=== PATIENT | male | born 1970 | race Caucasian/White ===

== ENCOUNTER → 2018-03-08 08:03 | Outpatient (CLI) | payer OTHER, SELFPAY ==
[2018-03-08 09:01] LABS: Add Manual Diff / Slide Review NO; Basophils Percent Auto 0.4 % (0-2); Eosinophils Percent Auto 1.1 % (2-4); Hematocrit 44.9 % (41-53); Hemoglobin 15.7 g/dL (13.5-17.5); Lymphocytes Percent Auto 25.5 % (25-40); Mean Corpuscular HGB Conc 34.9 % (30-36); Mean Corpuscular Hemoglobin 30.3 PG (26-34); Mean Corpuscular Volume 86.7 fL (80-100); Monocytes Percent Auto 9.9 % (3-14); Neutrophils Absolute Auto 3300 /uL (3000-5900); Neutrophils Percent Auto 63.1 % (50-75); Platelet Count 276 X10^3/uL (150-400); Red Blood Cell Count 5.17 X10^6/uL (4.5-5.9); Red Cell Distribution Width 12.8 % (11.6-14.8); White Blood Cell Count 5.2 X10^3/uL (4.5-11.0)
[2018-03-08 09:06] LABS: Alanine Aminotransferase 31 IU/L (21-72); Albumin 4.3 g/dL (3.5-5.0); Albumin Globulin Ratio 1.4 (1.0-2.8); Alkaline Phosphatase 44 U/L (38-126); Aspartate Aminotransferase 29 IU/L (17-59); BUN Creatinine Ratio 25.6 (6-22); Bilirubin Total 1.1 mg/dL (0.2-1.3); Blood Urea Nitrogen 23 mg/dL (9-20); Calcium 9.2 mg/dL (8.4-10.2); Carbon Dioxide 30 mmol/L (22-32); Chloride 102 mmol/L (98-107); Cholesterol 217 mg/dL (140-199); Estimated Glomerular Filt Rate > 60.0 mL/min (>60); Globulin 3.1 g/dL (1.7-4.1); Glucose 92 mg/dL (70-100); HDL Cholesterol 51 mg/dL (40-60); HEMOLYSIS < 15 (0-50); LDL Cholesterol Calculated 149 mg/dL (<100); Potassium 4.5 mmol/L (3.4-5.1); Sodium 140 mmol/L (137-145); Total Protein 7.4 g/dL (6.3-8.2); Triglycerides 87 mg/dL (35-150)
[2018-03-08 09:17] LABS: LDL Cholesterol Direct 141 mg/dL (<100)
[2018-03-08 12:35] LABS: Thyroid Stimulating Hormone 2.05 uIU/mL (0.47-4.68)
== END ==
PROVIDERS: Visit Provider Family Medicine
DX: Z00.00 Encounter for general adult medical examination without abnormal findings (principal); E78.5 Hyperlipidemia, unspecified
CPT/HCPCS: 36415; 80053; 80061; 83721; 84443; 85025

== ENCOUNTER → 2019-04-25 08:57 | Outpatient (CLI) | payer OTHER, SELFPAY ==
[2019-04-25 09:43] LABS: Add Manual Diff / Slide Review NO; Basophils Absolute Auto 0 /uL (0-100); Basophils Percent Auto 0.7 % (0-2); Eosinophils Absolute Auto 0 /uL (0-450); Hematocrit 45.2 % (41-53); Hemoglobin 15.7 g/dL (13.5-17.5); Lymphocytes Absolute Auto 1200 /uL (1100-4500); Lymphocytes Percent Auto 24.1 % (25-40); Mean Corpuscular HGB Conc 34.8 % (30-36); Mean Corpuscular Volume 86.1 fL (80-100); Monocytes Absolute Auto 400 /uL (0-900); Monocytes Percent Auto 8.7 % (3-14); Neutrophils Absolute Auto 3200 /uL (1500-7000); Neutrophils Percent Auto 65.5 % (50-75); Platelet Count 267 X10^3/uL (150-400); Red Blood Cell Count 5.25 X10^6/uL (4.5-5.9); White Blood Cell Count 4.9 X10^3/uL (4.5-11.0)
[2019-04-25 09:47] LABS: Alanine Aminotransferase 26 IU/L (21-72); Albumin 4.4 g/dL (3.5-5.0); Albumin Globulin Ratio 1.4 (1.0-2.8); Alkaline Phosphatase 49 U/L (38-126); Aspartate Aminotransferase 28 IU/L (17-59); Blood Urea Nitrogen 24 mg/dL (9-20); Calcium 9.2 mg/dL (8.4-10.2); Carbon Dioxide 32 mmol/L (22-32); Chloride 100 mmol/L (98-107); Cholesterol 255 mg/dL (140-199); Estimated Glomerular Filt Rate > 60.0 mL/min (>60); Globulin 3.2 g/dL (1.7-4.1); Glucose 91 mg/dL (70-100); HDL Cholesterol 45 mg/dL (40-60); HEMOLYSIS < 15 (0-50); LDL Cholesterol Calculated 190 mg/dL (<100); Potassium 4.3 mmol/L (3.4-5.1); Sodium 138 mmol/L (137-145); Total Protein 7.6 g/dL (6.3-8.2); Triglycerides 102 mg/dL (35-150); VLDL Cholesterol Calculated 20 mg/dL (2-30)
[2019-04-25 10:30] LABS: Thyroid Stimulating Hormone 2.51 uIU/mL (0.47-4.68)
== END ==
PROVIDERS: Visit Provider Family Medicine
DX: E78.5 Hyperlipidemia, unspecified (principal); Z00.00 Encounter for general adult medical examination without abnormal findings
CPT/HCPCS: 36415; 80053; 80061; 84443; 85025

== ENCOUNTER → 2020-12-01 11:37 | Outpatient (CLI) | payer OTHER, SELFPAY ==
[2020-12-01 13:25] LABS: COVID19 -Nasal RAPID Negative (Negative)
== END ==
PROVIDERS: Visit Provider Physician Assistant
DX: Z20.822 Contact with and (suspected) exposure to COVID-19 (principal); Z01.812 Encounter for preprocedural laboratory examination
CPT/HCPCS: 87635

== ENCOUNTER 2020-12-03 06:29 | Day surgery (SDC) | payer OTHER, SELFPAY ==
[2020-12-03] VITALS (7 sets, daily range): BP systolic 107–128; BP diastolic 64–86; PULSE 50–62; RESP 9–16; TEMP 36.2–36.6; O2SAT 95–98; BMI 26.6
--- NOTE | 2020-12-03 07:28 | PM.PREOP ---
Pre-operative Note COVID-19 COVID-19 status: Negative Result date/Date tested (Pos, Neg/Pending): 12/01/20 Interval Note History & Physical reviewed/Exam performed by Physician: Yes Changes to H&P: No
--- NOTE | 2020-12-03 07:30 | P.OP_ITS ---
Operative Date/Time/Diagnoses Date of procedure: 12/03/20 Time of procedure: 07:30 Pre-op diagnosis: Left great toe bunion Post-op diagnosis: same Procedure & Clinicians Procedure: Left great toe bunionectomy Same procedure as scheduled: Yes Indications: Painful prominence on the left great toe. Conservative measures failed to alleviate his pain and he wished to have surgical intervention at this time. We spoke of the risks, potential complications, expected outcomes, alternatives. Consent was verified, no contraindications to the procedure at this time. Surgeon: Angelina Connors Click Yes if Unassisted: Yes Anesthesia Type: General Operative Notes Closure Type: primary Specimen(s): none sent Estimated Blood Loss (mL): 20 Blood products transfused: none Tourniquet time (min): 22 Procedure in detail: The patient was brought to the operating room and placed on the operating table in the supine position. Tourniquet was placed about the left ankle. Well padded, appropriately aligned. Local anesthesia was performed to the left first metatarsophalangeal joint. After induction of general anesthesia the left foot and ankle were prepped and draped in the usual aseptic manner. The tourniquet was inflated. Incision was made over the left 1st metatarsal phalangeal joint. The incision was deepened through subcutaneous tissues being careful to identify and retract all vital neurovascular structures. All bleeders were cauterized and ligated as necessary. A medial capsulotomy was performed to the 1st MTPJ exposing the enlarged medial eminence. Of note, the metatarsal head showed some linear wearing of cartilage surface medially along the enlargement, but the central joint appeared clear. Dorsally on the first metatarsal head there was an enlargement of the prominence and mild spurring. The saw was used to resect the medial eminence and dorsal exostosis and some of the prominent portion, non- articular, of the dorsal metatarsal head. A rasp was used to reduce the sharp edges of the bone. The area was irrigated with copious amounts normal sterile saline. The great toe was placed in linear alignment and the medial 1st MTP redundant capsule was resected and repaired with Vicryl. The tourniquet was deflated and a prompt hyperemic response was seen in the foot. Deep and subcutaneous closure was closed performed with Vicryl, and Nylon suture to the skin. The foot was dressed with a lightly compressive sterile dressing and splint in alignment. Jona looney was then placed in a postoperative shoe and transferred to PACU with vital signs stable Complications: none Post-operative Condition: stable Disposition: PACU Plan for aftercare: Following a period of postoperative monitoring, the patient be discharged home on written and oral postoperative instructions including keeping the dressing dry and intact, avoiding significant ambulation on the foot, icing and elevating the foot when seated home. DVT prevention techniques have been reviewed. For the 1st postoperative visit the dressing will be changed and close to the 2nd-3rd postoperative week we will likely remove the sutures.
[2020-12-03] MEDS: LACTATED RINGERS 1,000 ML 100 ML IV (07:36)
[2020-12-03] MEDS: CEFAZOLIN 2 GM/100 ML FROZ.PIGGY IV (07:44)
[2020-12-03] MEDS: BUPIVACAINE 0.5% (PF) VIAL 30 ML INJ (08:01)
--- NOTE | 2020-12-03 08:10 | SUR.OPER ---
Supine on padded OR bed, head on pillow, arms secured on padded arm boards at <90 degrees abduction, legs uncrossed, safety belt at thigh, tape over blanket over lower right leg, left leg draped free with gel bump under left hip
== END 2020-12-03 10:20 | disposition home or self-care (01) ==
LOC: OR 06:31
PROVIDERS: PCP Family Medicine; Referring Provider Family Medicine; Visit Provider Podiatrist
PROC: 0QBP0ZZ Excision of Left Metatarsal, Open Approach (ICD-10-PCS; CPT 28292; principal; 2020-12-03 07:45)
DX: M21.612 Bunion of left foot (principal)
CPT/HCPCS: 28292; J0690; J3010

== ENCOUNTER → 2021-12-15 09:09 | Outpatient (CLI) | payer OTHER, SELFPAY ==
[2021-12-15 11:03] LABS: COVID19 -Nasal RAPID Negative (Negative)
== END ==
PROVIDERS: PCP Family Medicine; Visit Provider Family Medicine Sleep Medicine
DX: Z20.822 Contact with and (suspected) exposure to COVID-19 (principal)
CPT/HCPCS: 87635; C9803

== ENCOUNTER 2021-12-16 13:23 | Day surgery (SDC) | payer OTHER, SELFPAY ==
--- NOTE | 2021-12-16 12:23 | P.HP_ITS ---
History of Present Illness History of Present Illness Date Patient Seen: 12/16/21 Chief complaint: [facility] [place] Narrative: 50 Years Old Male seen today for consideration of a screening colonoscopy. There have been no lower GI symptoms suggesting disease such as change in bowel habits, bleeding, abdominal pain or anemia. He does have a family history of colon cancer in his maternal grandmother. Overall health issues have been stable, including no major cardiac events for at least 6 weeks. 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 Occupation: [employer] - [place] [employer] Education: college degree Patient History Family & Social History Family History (Updated 12/03/20 @ 07:10 by Thong Simpson RN) Father Hyperlipidemia Grandmother Pancreatic cancer Social History: household members spouse Tobacco & Substance use: Smoking Status Former smoker alcohol intake current alcohol intake frequency holiday/special occasion Substance Use Type does not use Meds Home Medications and Allergies Home Medications Medication Instructions Recorded Confirmed Type No Known Home Medications 12/03/20 12/15/21 History Allergies Allergy/AdvReac Type Severity Reaction Status Date / Time BEE VENOM Allergy Mild Uncoded 12/26/17 11:53 Review of Systems Review of Systems Narrative: All remaining ROS were reviewed and negative except as addressed. Exam Narrative Exam Narrative: GENERAL: Alert and oriented, appearing stated age and in no acute distress. HEENT: Head normocephalic/atraumatic. Extraocular movements intact. LUNGS: Clear to ausculation bilaterally, no wheezes, rhonchi or rales. CV: Normal S1 and S2 with regular rate and rhythm, no audible murmurs, rubs or gallops. ABDOMEN: Soft, non-tender, non-distended, no organomegaly. Positive bowel sounds. EXTREMITIES: No clubbing, cyanosis, or edema. NEURO: Cranial nerves II through XII grossly intact, no focal deficits. PSYCH: Alert and oriented x 3. SKIN: No concerning lesions. Assessment & Plan Assessment & Plan narrative: 1. Family history of colon cancer 2. Screening for colon cancer Plan for colonoscopy. The nature and character of the procedure as well as anticipated results were discussed. The possibility of not completing the procedure was also discussed. Possible complications including aspiration pneumonia, bleeding, perforation and reaction to medications either for sedation or preparation and missed lesions were discussed. Questions were answered and proceeding to the colonoscopy was elected. Informed consent signed. I sincerely appreciate the referral allowing me to participate in this patient's care. Please contact me with any questions or concerns.
--- NOTE | 2021-12-16 12:25 | PM.OP.COLON ---
Operative Date/Time/Diagnoses Date of procedure: 12/16/21 Procedure Notes SCOAP/Timeout: 2:49 p.m. Procedure in detail: ENDOSCOPIST: Nneka Coley MD Sedation RN: Klarissa Guzman RN Sedation start time: 2:49 p.m. Sedation end time: 3:20 p.m. PROCEDURE: Colonoscopy INDICATIONS: 1. Family history of colon cancer 2. Screening for colon cancer MEDICATION: Levsin 0.125 mg sublingual, incremental doses of Versed and fentanyl until appropriate level sedation achieved. ASA CLASS: 2 CECAL WITHDRAWAL TIME: 12 minutes COMPLICATIONS: None. EXTENT OF PROCEDURE: Cecum. QUALITY OF PREP: Good with portions of liquid stool. PROCEDURE: Prior to insertion of the colonoscope, a digital rectal examination was accomplished with circumferential palpation of the distal rectal mucosa without significant findings being noted. The high-definition colonoscope was passed into the rectum in the usual fashion and advanced over to the cecum without difficulty. The ileocecal valve, appendiceal stoma, and medial wall all could be inspected and no abnormalities were seen. ASCENDING COLON: As the colonoscope was withdrawn, care was taken to expose and inspect the haustral folds and no abnormalities were seen. HEPATIC FLEXURE: Normal, no polyps, diverticula or other abnormalities. TRANSVERSE COLON: Normal, no polyps, diverticula or other abnormalities. DESCENDING COLON: Normal, no polyps, diverticula or other abnormalities. SIGMOID COLON: Normal, no polyps, diverticula or other abnormalities. RECTUM: Normal. J maneuver was produced. There was no significant perianal disease. The J maneuver was broken. The remainder of the rectum was inspected and there was minor external hemorrhoid disease. The scope was withdrawn. IMPRESSION: 1. Normal colonoscopy 2. External hemorrhoids, minor, nonthrombosed PLAN: 1. Repeat colonoscopy in 10 years. The possibility of a missed lesion including a malignancy has been discussed with the patient previously. Potential alarm symptoms have been discussed and should be reported immediately.
[2021-12-16 13:36] VITALS: BP 142/78; PULSE 60; RESP 18; TEMP 36.6; O2SAT 98; BMI 27.3
[2021-12-16] MEDS: HYOSCYAMINE 0.125 MG TABLET PO (13:42)
[2021-12-16] MEDS: LACTATED RINGERS 1,000 ML 200 ML IV (13:43)
[2021-12-16] MEDS: MIDAZOLAM 5 MG/5 ML VIAL IV (15:23)
[2021-12-16] MEDS: fentaNYL 250 MCG/5 ML INJ IV (15:23)
[2021-12-16 15:26] VITALS: BP 117/77; PULSE 58; RESP 12; TEMP 36.3; O2SAT 96
--- NOTE | 2021-12-16 15:34 | SUR.PHASEI ---
Discharge instructions reviewed with pt and he verbalized understanding.
[2021-12-16 15:36] VITALS: BP 112/57; PULSE 56; RESP 13; O2SAT 96
[2021-12-16 15:41] VITALS: BP 121/67; PULSE 53; RESP 17; O2SAT 98
[2021-12-16 15:44] VITALS: BP 113/74; PULSE 51; RESP 18; O2SAT 96
== END 2021-12-16 15:49 | disposition home or self-care (01) ==
PROVIDERS: PCP Family Medicine; Referring Provider Student in an Organized Health Care Education/Training Program; Visit Provider Student in an Organized Health Care Education/Training Program
PROC: 0DJD8ZZ Inspection of Lower Intestinal Tract, Via Natural or Artificial Opening Endoscopic (ICD-10-PCS; CPT 45378; principal; 2021-12-16 14:30)
DX: Z12.11 Encounter for screening for malignant neoplasm of colon (principal); Z80.0 Family history of malignant neoplasm of digestive organs; K64.4 Residual hemorrhoidal skin tags
CPT/HCPCS: 45378; J2250; J3010